=== PATIENT | female | born 1940 | race Caucasian/White ===

== ENCOUNTER 2018-06-06 15:06 | Inpatient (IN) | payer MEDICARE, MEDICAID ==
[~2018-06-06] VITALS: Ht 167.6 cm; Wt 94.4 kg
[~2018-06-06 15:06] MED LIST: ESOM40CA PO; GABA-532 PO; HYDR1TAB PO; HYDR2TAB35 PO; NAPR-1164 PO; TRAM50TA2 PO
[2018-06-06] MEDS ORDERED: IPRATROPIUM NEB FS 0.5 MG/2.5 ML AMPUL.NEB NEB ONE (15:30)
[2018-06-06] MEDS ORDERED: ALBUTEROL FS 2.5 MG/3 ML VIAL.NEB CONTNEB ONE (15:30)
[2018-06-06] MEDS ORDERED: methylPREDNISolone SOD SUCC 125 MG/2ML VIAL IV ONE (15:30)
[2018-06-06] MEDS ORDERED: methylPREDNISolone SOD SUCC 125 MG/2ML VIAL ONE (15:32)
[2018-06-06] MEDS ORDERED: ALBUTEROL FS 2.5 MG/3 ML VIAL.NEB ONE (15:47)
[2018-06-06] MEDS ORDERED: IPRATROPIUM NEB FS 0.5 MG/2.5 ML AMPUL.NEB ONE (15:47)
[2018-06-06 15:55] LABS: CALCIUM, SERUM 8.7 mg/dL (8.5-10.1); CARBON DIOXIDE 24 mmol/L (21-32); CHLORIDE 99 mmol/L (98-107); CREATININE 0.8 mg/dL (0.6-1.3); GLUCOSE 133 mg/dL (74-106); POTASSIUM 3.8 mmol/L (3.5-5.1); SODIUM SERUM 134 mmol/L (136-145); UREA NITROGEN, BLOOD 18 mg/dL (7-18)
[2018-06-06 16:00] LABS: BASOPHILS % (AUTO) 0.3 % (0.0-2.0); EOSINOPHILS % (AUTO) 0.6 % (0.0-6.0); HEMATOCRIT 38 % (33-45); HEMOGLOBIN 12.7 g/dL (11.5-14.8); LYMPHOCYTES # (AUTO) 1.1 /CMM (0.8-4.8); LYMPHOCYTES % (AUTO) 17.5 % (20.0-44.0); MEAN CORPUSCULAR HGB CONC 33 g/dl (31.0-36.0); MEAN CORPUSCULAR VOLUME 90 fL (82-100); MONOCYTES # (AUTO) 0.6 /CMM (0.1-1.30); MONOCYTES % (AUTO) 9.9 % (2.0-12.0); NEUTROPHILS # (AUTO) 4.5 /CMM (1.8-8.9); NEUTROPHILS % (AUTO) 71.7 % (43.0-81.0); PLATELET COUNT (AUTO) 173 /CMM (150-450); RED BLOOD CELL COUNT(AUTO) 4.28 MIL/uL (4.0-5.2); WHITE BLOOD COUNT (AUTO) 6.3 K/uL (4.3-11.0)
[2018-06-06 16:11] LABS: ALANINE AMINOTRANSFERASE 22 U/L (12-78); ALBUMIN 3.9 g/dL (3.4-5.0); ALKALINE PHOSPHATASE 93 U/L (46-116); ASPARTATE AMINOTRANSFERASE 21 U/L (15-37); B-TYPE NATRIURETIC PEPTIDE 534 PG/ML (0-125); BILIRUBIN,DIRECT 0.1 mg/dL (0.0-0.2); BILIRUBIN,TOTAL 0.3 mg/dL (0.2-1.0); TOTAL PROTEIN, SERUM 7.6 g/dL (6.4-8.2)
[2018-06-06] MEDS ORDERED: ACETAMINOPHEN 325 MG TABLET ONE (16:54)
[2018-06-06] MEDS ORDERED: ACETAMINOPHEN 325 MG TABLET PO ONE (17:00)
[2018-06-06] MEDS ORDERED: oxyCODONE/APAP (5/325 MG) 1 UDTAB TABLET ONE (17:22)
--- NOTE | 2018-06-06 17:29 | NUR ---
CALLED [facility]. MGMT CONSULTANT WAS PAGED
[2018-06-06] MEDS ORDERED: oxyCODONE/APAP (5/325 MG) 1 UDTAB TABLET PO ONE (17:30)
--- NOTE | 2018-06-06 17:32 | NUR ---
CALLED [facility]SE [facility] FOR TELE BED
--- NOTE | 2018-06-06 17:59 | NUR ---
TELE BED 311-1 GIVEN
[2018-06-06] MEDS ORDERED: IV NS 0.9% 1,000 ML IV PRN (18:43)
--- NOTE | 2018-06-06 18:56 | NUR ---
REPORT GIVEN TO ARUNA RAY FOR LIEN
[2018-06-06] MEDS ORDERED: GUAIFENESIN/D-METHORPHAN HB 5 ML UDC PO PRN (19:00)
[2018-06-06] MEDS ORDERED: HYDROMORPHONE HCL 2 MG TABLET PO PRN (19:00)
[2018-06-06] MEDS ORDERED: Z GUARD REMEDY 2 OZ OINT TP PRN (19:00)
[2018-06-06] MEDS ORDERED: ZOLPIDEM TARTRATE 5 MG TABLET PO PRN (19:00)
[2018-06-06] MEDS ORDERED: ONDANSETRON HCL/PF 4 MG/2 ML VIAL IVP PRN (19:00)
[2018-06-06] MEDS ORDERED: TRAMADOL HCL 50 MG TABLET PO SCH (19:00)
--- NOTE | 2018-06-06 19:55 | NUR ---
RN ADMITTING NOTES Pt WAS ALREADY ON THE FLOOR AT CHANGE OF SHIFT. FAMILY AT BEDSIDE. Pt IS A/OX4, GREENLANDIC SPEAKING, VERBAL, ABLE TO MAKE NEEDS KNOWN IN MALAYSIAN. NO S/S OF ACUTE DISTRESS. IV ACCESS ON L HAND #20G. SAFETY MEASURES IN PLACE. BED LOW, LOCKED, HOB ELEVATED, SIDE RAILS UP, CALL LIGHT AND BEDSIDE TABLE WITHIN REACH. WILL CONTINUE TO MONITOR Pt's CONDITION AND SAFETY THROUGHOUT THE NIGHT.
[2018-06-06 20:00] VITALS: BP 146/74
[2018-06-06] MEDS: MORPHINE SULFATE INJ 2 MG/ML DISP.SYRIN IV PRN (20:43)
[2018-06-06] MEDS: AZITHROMYCIN 500 MG in IV D5W 250 ML IV SCH (22:42)
[2018-06-06] MEDS: ENOXAPARIN SODIUM 40 MG/0.4 ML DISP.SYRIN SQ SCH (22:55)
[2018-06-06] MEDS: IPRATROPIUM NEB FS 0.5 MG/2.5 ML AMPUL.NEB NEB SCH ×2 (23:30→23:44)
[2018-06-06] MEDS: ALBUTEROL FS 2.5 MG/3 ML VIAL.NEB NEB SCH ×2 (23:30→23:44)
--- NOTE | 2018-06-06 23:48 | NUR ---
RT NOTE WAS NOT NOTIFIED OF PATIENT HAVING BREATHING TX. RN IS AWARE.
[2018-06-07] VITALS (7 sets, daily range): BP systolic 146–181; BP diastolic 67–88
[2018-06-07] MEDS ORDERED: VALS40TA12 PO (01:13)
[2018-06-07] MEDS: IPRATROPIUM NEB FS 0.5 MG/2.5 ML AMPUL.NEB NEB SCH ×6 (03:09→23:35)
[2018-06-07] MEDS: ALBUTEROL FS 2.5 MG/3 ML VIAL.NEB NEB SCH ×6 (03:10→23:35)
--- NOTE | 2018-06-07 06:45 | NUR ---
RN CLOSING NOTES NO SIGNIFICANT CHANGES IN Pt's CONDITION. Pt REMAINS STABLE PER BASELINE. NO S/S OF ACUTE DISTRESS OR SEVERE SOB NOTED DURING THE NIGHT. TELE READING SR 82. Pt IS RESTING IN BED. RESPIRATIONS EVEN AND UNLABORED. ALL NEEDS MET AND ATTENDED. SAFETY MEASURES IN PLACE. BED LOW, LOCKED, HOB ELEVATED, SIDE RAILS UP, CALL LIGHT AND BEDSIDE TABLE WITHIN REACH. WILL ENDORSE TO DAYSHIFT RN FOR Pt's LIEN.
[2018-06-07 07:18] LABS: BASOPHILS % (AUTO) 0.1 % (0.0-2.0); HEMATOCRIT 38 % (33-45); HEMOGLOBIN 12.8 g/dL (11.5-14.8); LYMPHOCYTES # (AUTO) 0.7 /CMM (0.8-4.8); LYMPHOCYTES % (AUTO) 8.2 % (20.0-44.0); MEAN CORPUSCULAR HGB CONC 34 g/dl (31.0-36.0); MEAN CORPUSCULAR VOLUME 88 fL (82-100); MONOCYTES # (AUTO) 0.3 /CMM (0.1-1.30); MONOCYTES % (AUTO) 4.1 % (2.0-12.0); NEUTROPHILS # (AUTO) 7.2 /CMM (1.8-8.9); NEUTROPHILS % (AUTO) 87.6 % (43.0-81.0); PLATELET COUNT (AUTO) 184 /CMM (150-450); RED BLOOD CELL COUNT(AUTO) 4.32 MIL/uL (4.0-5.2); WHITE BLOOD COUNT (AUTO) 8.2 K/uL (4.3-11.0)
[2018-06-07 07:32] LABS: CALCIUM, SERUM 9.1 mg/dL (8.5-10.1); CARBON DIOXIDE 27 mmol/L (21-32); CHLORIDE 101 mmol/L (98-107); CREATININE 0.6 mg/dL (0.6-1.3); GLUCOSE 153 mg/dL (74-106); MAGNESIUM 2.3 mg/dL (1.8-2.4); POTASSIUM 4.8 mmol/L (3.5-5.1); SODIUM SERUM 137 mmol/L (136-145); UREA NITROGEN, BLOOD 17 mg/dL (7-18)
[2018-06-07 07:52] LABS: CHOLESTEROL 189 mg/dL (<200); HDL CHOLESTEROL 97 mg/dL (40-60); LDL 84 mg/dL (0-99); TRIGLYCERIDES 32 mg/dL (30-150)
--- NOTE | 2018-06-07 08:00 | NUR ---
VIDEO TAPE EDITOR OPENING NOTES PATIENT A/O X4 AND ABLE TO MAKE NEEDS KNOWN. RESPIRATION EVEN AND NON LABORED WITH NO ACUTE RESPIRATORY DISTRESS, ON O2 AT 2LPM VIA N/C AND TOLERATED WELL. ABDOMEN SOFT AND NON DISTENDED WITH ACTIVE BOWEL SOUNDS TO ALL QUADRANTS. SKIN WARM TO TOUCH, INTACT AND DRY. DENIES PAIN AND DISCOMFORT AT THIS TIME. IV INFUSING WITH NS AT 75 ML/HR AT LEFT HAND, PATENT IN FLUSHING, NO S/SX OF INFILTRATION. PER TELE MONITOR WITH SINUS RHYTHM AT 69. ALL CONCERNS ATTENDED. PLACED CALL LIGHT WITHIN REACH TO ENSURE SAFETY. WILL CONTINUE TO EVALUATE CARE.
[2018-06-07] MEDS: PANTOPRAZOLE 40 MG TABLET.DR PO SCH (09:00)
[2018-06-07] MEDS: GABAPENTIN 100 MG CAPSULE PO SCH ×3 (09:00→16:30)
[2018-06-07] MEDS: NAPROXEN 500 MG TABLET PO SCH ×2 (09:00→09:01)
[2018-06-07] MEDS: methylPREDNISolone SOD SUCC 40 MG/ML VIAL IV SCH ×3 (09:00→16:30)
[2018-06-07] MEDS: MORPHINE SULFATE INJ 2 MG/ML DISP.SYRIN IV PRN (10:02)
[2018-06-07] MEDS: VALSARTAN 80 MG TABLET PO SCH (12:27)
[2018-06-07] MEDS ORDERED: TRAMADOL HCL 50 MG TABLET PO PRN (15:00)
--- NOTE | 2018-06-07 16:28 | NUR ---
MARKETING TRAFFIC MANAGER NOTES NAPROXEN DC PER MD ORDER DUE TO PATIENT COMPLAIN OF STOMACH PAIN. ORDER VERIFIED, NOTED AND CARRIED OUT. WILL CONTINUE TO EVALUATE CARE.
--- NOTE | 2018-06-07 19:00 | NUR ---
SERVER SUPPORT TECHNICIAN CLOSING NOTES PATIENT A/O X4 AND ABLE TO MAKE NEEDS KNOWN. RESPIRATION EVEN AND NON LABORED WITH NO ACUTE RESPIRATORY DISTRESS, ON O2 AT 2LPM VIA N/C AND TOLERATED WELL. ABDOMEN SOFT AND NON DISTENDED WITH ACTIVE BOWEL SOUNDS TO ALL QUADRANTS. SKIN WARM TO TOUCH, INTACT AND DRY. DENIES PAIN AND DISCOMFORT AT THIS TIME. IV INFUSING WITH NS AT 75 ML/HR AT LEFT HAND, PATENT IN FLUSHING, NO S/SX OF INFILTRATION. PER TELE MONITOR WITH SINUS RHYTHM WITH 1 DEGREE BLOCK AND BBB AT 77. ALL CONCERNS ATTENDED. PLACED CALL LIGHT WITHIN REACH TO ENSURE SAFETY. ENDORSED PATIENT TO NEXT SHIFT.
[2018-06-07] MEDS: AZITHROMYCIN 500 MG in IV D5W 250 ML IV SCH (19:06)
[2018-06-07] MEDS: ENOXAPARIN SODIUM 40 MG/0.4 ML DISP.SYRIN SQ SCH (19:06)
--- NOTE | 2018-06-07 20:15 | NUR ---
RN OPEN NOTES RECEIVED PATIENT AWAKE IN BED. A/O X4. URDU SPEAKING. ON 2LPM O2 VIA NC. NO SIGNS OF DISTRESS OR DISCOMFORT. BREATHING EVEN AND UNLABORED. ON TELE WITH SR 89 NOTED. IV ACCES IN L HAD WITH NS INFUSING, NO SIGNS OF REDNESS OR INFILTRATION. BED IN LOW LOCKED POSITION WITH SIDE RAILS X2. CALL LIGHT WITHIN REACH. WILL CONTINUE TO MONITOR.
[2018-06-08] VITALS: BP 154/80
--- NOTE | 2018-06-08 02:54 | NUR ---
PATIENT ENDORSED TO MARGO RAY FOR LIEN.
--- NOTE | 2018-06-08 03:15 | NUR ---
RN NOTES RECEIVED ENDORSEMENT FROM FLOR PIERRE FOR Pt's LIEN. NO S/S OF ACUTE DISTRESS OR SOB NOTED. WILL CONTINUE TO MONITOR Pt's CONDITION AND SAFETY THROUGHOUT THE REMAINDER OF THE SHIFT.
[2018-06-08] MEDS: ACETAMINOPHEN 325 MG TABLET PO PRN (03:25)
[2018-06-08] MEDS: HYDROCODONE/APAP 5/325MG 1 EACH TABLET PO PRN ×2 (03:37→12:42)
[2018-06-08] MEDS: IPRATROPIUM NEB FS 0.5 MG/2.5 ML AMPUL.NEB NEB SCH ×6 (03:38→23:02)
[2018-06-08] MEDS: ALBUTEROL FS 2.5 MG/3 ML VIAL.NEB NEB SCH ×6 (03:38→23:02)
[2018-06-08 04:00] VITALS: BP 119/79
[2018-06-08] MEDS: PANTOPRAZOLE 40 MG TABLET.DR PO SCH (06:35)
--- NOTE | 2018-06-08 06:48 | NUR ---
RN CLOSING NOTES NO SIGNIFICANT CHANGES IN Pt's CONDITION. Pt REMAINS STABLE AT THIS TIME. NO S/S OF ACUTE DISTRESS OR SOB NOTED DURING THE NIGHT. ALL NEEDS MET AND ATTENDED TO. Pt IS CURRENTLY RESTING IN BED COMFORTABLY. RESPIRATIONS EVEN AND UNLABORED. SAFETY MEASURES IN PLACE. BED LOW, LOCKED, HOB ELEVATED, SIDE RAILS UP, CALL LIGHT AND BEDSIDE TABLE WITHIN REACH. BED ALARM ON. WILL ENDORSE TO DAYSHIFT RN FOR Pt's LIEN.
[2018-06-08 07:27] LABS: BASOPHILS % (AUTO) 0.1 % (0.0-2.0); HEMATOCRIT 36 % (33-45); LYMPHOCYTES # (AUTO) 0.9 /CMM (0.8-4.8); LYMPHOCYTES % (AUTO) 7.5 % (20.0-44.0); MEAN CORPUSCULAR HGB CONC 33 g/dl (31.0-36.0); MEAN CORPUSCULAR VOLUME 88 fL (82-100); MONOCYTES # (AUTO) 0.8 /CMM (0.1-1.30); MONOCYTES % (AUTO) 6.4 % (2.0-12.0); NEUTROPHILS # (AUTO) 10.2 /CMM (1.8-8.9); PLATELET COUNT (AUTO) 192 /CMM (150-450); WHITE BLOOD COUNT (AUTO) 11.8 K/uL (4.3-11.0)
[2018-06-08 07:45] LABS: ALANINE AMINOTRANSFERASE 25 U/L (12-78); ALBUMIN 3.4 g/dL (3.4-5.0); ALKALINE PHOSPHATASE 66 U/L (46-116); ASPARTATE AMINOTRANSFERASE 25 U/L (15-37); BILIRUBIN,TOTAL 0.2 mg/dL (0.2-1.0); CALCIUM, SERUM 8.8 mg/dL (8.5-10.1); CARBON DIOXIDE 25 mmol/L (21-32); CHLORIDE 106 mmol/L (98-107); CREATININE 0.7 mg/dL (0.6-1.3); GLUCOSE 155 mg/dL (74-106); MAGNESIUM 2.4 mg/dL (1.8-2.4); PHOSPHORUS 2.9 mg/dL (2.5-4.9); POTASSIUM 4.4 mmol/L (3.5-5.1); SODIUM SERUM 141 mmol/L (136-145); TOTAL PROTEIN, SERUM 7.1 g/dL (6.4-8.2); UREA NITROGEN, BLOOD 21 mg/dL (7-18)
[2018-06-08 08:00] VITALS: BP 165/83
--- NOTE | 2018-06-08 08:00 | NUR ---
rn notes Received patient in the bed a/o x3/4, Uzbek speaker. Patient on O2 -2L NC, was complaining of pain when cough, and wheezing during auscultation., but has no acute respiratory distress. Patient sitting using pillows , keep HOB elevated all the time. Scheduled medication administered, v/s stable. patient using walker, continent using bathroom. Needs attended and anticipated. Call light within to reach. Safety precaution maintained all the time.
[2018-06-08] MEDS: GABAPENTIN 100 MG CAPSULE PO SCH ×3 (09:35→17:00)
[2018-06-08] MEDS: VALSARTAN 80 MG TABLET PO SCH (09:36)
[2018-06-08] MEDS: methylPREDNISolone SOD SUCC 40 MG/ML VIAL IV SCH ×3 (09:36→17:01)
[2018-06-08] MEDS: ASPIRIN 81 MG TAB.CHEW PO SCH (09:44)
--- NOTE | 2018-06-08 12:42 | NUR ---
RN NOTES ADMINISTERED NARCO 5/325 MG PO PRN FOR LEFT LEG PAIN 5/10 PER PATIENT REQUEST, V/S TAKEN STABLE, ENCOURAGED TO INCREASE FLUID INTAKE TOLERATED, CALL LIGHT WITHIN TO REACH. ALSO ADMINISTERED SCHEDULED MEDICATION. PATIENT ON O2-2L NS, NO ACUTE RESPIRATORY DISTRESS. PATIENT USING WALKER TO AMBULATE. SAFETY PRECAUTION MAINTAINED ALL THE TIME.
[2018-06-08 16:00] VITALS: BP 167/73
[2018-06-08] MEDS: CLONIDINE HCL 0.1 MG TABLET PO PRN (17:08)
--- NOTE | 2018-06-08 17:08 | NUR ---
RN NOTES BP -183/73, P-78 ADMINISTERED CATAPRES 0.1 MG PO PRN PRESCRIBED, CONTINUED MONITORING.
[2018-06-08 18:00] VITALS: BP 149/72
--- NOTE | 2018-06-08 18:30 | NUR ---
RN NOTES PATIENT STABLE MEDICATION WERE ADMINISTERED FOR BP EFFECTIVE, PATIENT STABLE REFUSED PAIN MEDICATION AT THIS TIME. INFUSING ANTIBIOTIC AT THIS TIME, INTACT. PATIENT STABLE. CALL LIGHT WITHIN TO REACH. ENDORSED ONCOMING NURSE FOR PLAN OF CARE.
[2018-06-08] MEDS: AZITHROMYCIN 500 MG in IV D5W 250 ML IV SCH (18:31)
[2018-06-08] MEDS: ENOXAPARIN SODIUM 40 MG/0.4 ML DISP.SYRIN SQ SCH (18:45)
--- NOTE | 2018-06-08 19:10 | NUR ---
MS RN OPENING NOTES Received patient sitting up in bed, alert, oriented 4. Breathing even and unlabored. Not in any distress. On supplemental O2 at 2LPM via NC, tolerating well. IV access on R) wrist g#22, currently infusing IV antibiotic. No complaints as of this time. Call light within easy reach. Bed in low, locked position.Patient stable as endorsed by the AM RN. Will continue to monitor accordingly
[2018-06-08 20:00] VITALS: BP 146/79
[2018-06-09] MEDS: HYDROCODONE/APAP 5/325MG 1 EACH TABLET PO PRN ×2 (02:59→13:33)
--- NOTE | 2018-06-09 03:00 | NUR ---
RN NOTES Patient c/o pain on leg, 09/08. norco 5-325 given as ordered. will continue to monitor
[2018-06-09] MEDS: ALBUTEROL FS 2.5 MG/3 ML VIAL.NEB NEB SCH ×6 (03:25→22:52)
[2018-06-09] MEDS: IPRATROPIUM NEB FS 0.5 MG/2.5 ML AMPUL.NEB NEB SCH ×6 (03:25→22:52)
[2018-06-09 07:02] LABS: HEMATOCRIT 37 % (33-45); HEMOGLOBIN 12.4 g/dL (11.5-14.8); LYMPHOCYTES # (AUTO) 0.8 /CMM (0.8-4.8); LYMPHOCYTES % (AUTO) 9.1 % (20.0-44.0); MEAN CORPUSCULAR HGB CONC 33 g/dl (31.0-36.0); MEAN CORPUSCULAR VOLUME 89 fL (82-100); MONOCYTES # (AUTO) 0.5 /CMM (0.1-1.30); MONOCYTES % (AUTO) 5.7 % (2.0-12.0); NEUTROPHILS # (AUTO) 7.6 /CMM (1.8-8.9); NEUTROPHILS % (AUTO) 85.2 % (43.0-81.0); PLATELET COUNT (AUTO) 222 /CMM (150-450); RED BLOOD CELL COUNT(AUTO) 4.21 MIL/uL (4.0-5.2); WHITE BLOOD COUNT (AUTO) 8.9 K/uL (4.3-11.0)
--- NOTE | 2018-06-09 07:02 | NUR ---
MS RN NOTES PATIENT IN BED EYES CLOSED, EASY TO AROUSE. RESPOND TO VERBAL AND TACTILE STIMULI. NO ACUTE DISTRESS NOTED. BREATHING UNLABORED. NO SOB NOTED. SAFETY MEASURES IN PLACE. CALL LIGHT WITHIN REACH. WILL CONTINUE TO MONITOR ACCORDINGLY.
--- NOTE | 2018-06-09 07:06 | NUR ---
MS RN CLOSING NOTES Patient resting in bed, alert, oriented 4. Breathing even and unlabored. Not in any distress. On supplemental O2 at 2LPM via NC, tolerating well. IV access on R) wrist g#22 intact and patent. No complaints as of this time. Call light within easy reach. Bed in low, locked position. Will endorse LIEN to oncoming RN
[2018-06-09 07:26] LABS: CARBON DIOXIDE 25 mmol/L (21-32); CHLORIDE 103 mmol/L (98-107); CREATININE 0.7 mg/dL (0.6-1.3); GLUCOSE 150 mg/dL (74-106); MAGNESIUM 2.3 mg/dL (1.8-2.4); PHOSPHORUS 2.7 mg/dL (2.5-4.9); POTASSIUM 4.6 mmol/L (3.5-5.1); SODIUM SERUM 138 mmol/L (136-145); UREA NITROGEN, BLOOD 25 mg/dL (7-18)
[2018-06-09 07:57] VITALS: BP 174/71
--- NOTE | 2018-06-09 08:15 | NUR ---
MS RN NOTES SEEN AND EVALUTED BY DAVID STEPHENS WITH NEW ORDERS MADE, NOTED AND CARRIED OUT.
[2018-06-09] MEDS: PANTOPRAZOLE 40 MG TABLET.DR PO SCH (08:18)
[2018-06-09] MEDS: GABAPENTIN 100 MG CAPSULE PO SCH ×4 (08:21→16:50)
[2018-06-09] MEDS: ACETAMINOPHEN 325 MG TABLET PO PRN (08:21)
[2018-06-09] MEDS: ASPIRIN 81 MG TAB.CHEW PO SCH ×2 (08:21→08:28)
[2018-06-09] MEDS: methylPREDNISolone SOD SUCC 40 MG/ML VIAL IV SCH ×3 (08:21→16:49)
[2018-06-09] MEDS: VALSARTAN 80 MG TABLET PO SCH (08:22)
--- NOTE | 2018-06-09 11:41 | NUR ---
MS RN NOTES PATIENT REFUSED RAPID INFLUENZA DESPITE OF EXPLANATION OF RISK AND BENEFITS. ANNE STEPHENS MADE AWARE.
[2018-06-09 16:00] VITALS: BP 176/91
[2018-06-09] MEDS: CLONIDINE HCL 0.1 MG TABLET PO PRN (16:49)
--- NOTE | 2018-06-09 19:00 | NUR ---
MS RN NOTES PATIENT IN BED ALERT ORIENTED X3, NO ACUTE DISTRESS NOTED. BREATHING UNLABORED. NO SOB NOTED. DUE MEDICATIONS GIVEN, NO ASE NOTED. NEEDS ATTENDED AND ANTICIPATED. KEPT CLEAN DRY AND COMFORTABLE.SAFETY MEASURES IN PLACE. CALL LIGHT WITHIN REACH. ENDORSED TO NIGHT NURSE FOR CONITUITY OF CARE.
[2018-06-09] MEDS: ENOXAPARIN SODIUM 40 MG/0.4 ML DISP.SYRIN SQ SCH (19:04)
--- NOTE | 2018-06-09 19:05 | NUR ---
RN MS OPENING NOTES RECEIVED PATIENT IN BED AWAKE, ALERT AND ORIENTED X 4, RESPIRATIONS EVEN AND UNLABORED WITH EQUAL RISE AND FALL OF CHEST, DENIES ANY PAIN OR DISCOMFORT, IV SITE RIGHT WRIST #22G INTACT AND PATENT, NO REDNESS,NO INFILTRATION PRESENT SL, ORIENTED TO STAFF AND CALL LIGHT AND KEPT WITHIN REACH ,SAFETY PRECAUTIONS IN PLACE, LOW BED AND LOCKED, PER REPORT NEW ORDER FOR DISCHARGE. WILL CONTINUE TO MONITOR. ALL NEEDS ATTENDED AT THIS TIME, WILL CONTINUE TO MONITOR.
[2018-06-09] MEDS ORDERED: AZIT250T PO (19:09)
[2018-06-09 20:00] VITALS: BP 188/82
[2018-06-09] MEDS ORDERED: AZITHROMYCIN 250 MG TABLET PO SCH (20:00)
--- NOTE | 2018-06-09 20:00 | NUR ---
RN MS NOTES PATIENT BLOOD PRESSURE NOTED TO BE ELEVATED AT 188/82 NORA STEPHENS MADE AWARE OF B/P PRIOR TO DISCHARGE AND IF OKAY TO STILL DISCHARGE PATIENT IS ASYMPTOMATIC NEW ORDER FOR CLONIDINE 0.1MG X1 DOSE NOW AND OKAY TO DC WILL CONTINUE TO MONITOR BLOOD PRESSURE SPOKE TO DAUGHTER MIGNON MADE AWARE OF B/P AND NEW MD ORDER . PER DAUGHTER DOES NOT WANT TO TAKE PATIENT HOME IF B/P REMAINS HIGH.
[2018-06-09] MEDS: MAG HYDROX/AL HYDROX/SIMETH 30 ML UDC PO PRN (20:24)
--- NOTE | 2018-06-09 20:24 | NUR ---
RN MS NOTES CLONIDINE 0.1MG X 1 DOSE GIVEN ORDERED FOR ELEVATED B/P. PATIENT COMPLAINT OF FEELING SOME INDIGESTION OFFERED MAALOX, PATIENT AGREED. WILL CONTINUE TO MONITOR FOR EFFECTIVENESS.
[2018-06-09] MEDS ORDERED: CLONIDINE HCL 0.1 MG TABLET PO ONE (20:30)
--- NOTE | 2018-06-09 22:00 | NUR ---
RN MS NOTES BLOOD PRESSURE REASSESED REMAINS ELEVATED AT 196/88 HEART RATE 67, PATIENT ASYMPTOMATIC. MADE LUCERO AWARE OF PRN CLONIDINE DOSE GIVEN NOT EFFECTIVE, AND PATIENT B/P TRENDS BETWEEN SBP 140-170'S NEW ORDER FOR NORVASC 2.5MG X 1NOW AND NORVASC 2.5MG DAILY. MADE LUCERO AWARE PATIENT DAUGHTER NOT COMFORTABLE FOR DISCHARGE PER MD PATIENT IS OKAY TO STAY TONIGHT. WILL CONTINUE TO MONITOR AND ASSESS B/P
[2018-06-09] MEDS ORDERED: AMLODIPINE BESYLATE 2.5 MG TABLET PO ONE (22:30)
[2018-06-09] MEDS: MAGNESIUM HYDROXIDE 30 ML UDC PO PRN (23:01)
--- NOTE | 2018-06-09 23:01 | NUR ---
RN MS NOTES PATIENT STATES " HAS NOT HAD SRIDHAR X 3DAYS" MILK OF MAGNESIUM OFFERED, PATIENT AGREED, WILL CONTINUE TO MONITOR FOR EFFECTIVENESS. FLUIDS OFFERED, TOILETING OFFERED.
--- NOTE | 2018-06-09 23:06 | NUR ---
RN MS NOTES NORVASC X 1 DOSE GIVEN, WILL CONTINUE TO MONITOR FOR EFFECTIVENESS SBP 190/81 HEART RATE 85
[2018-06-10] MEDS: MORPHINE SULFATE INJ 2 MG/ML DISP.SYRIN IV PRN ×2 (01:43→13:36)
--- NOTE | 2018-06-10 01:43 | NUR ---
RN MS NOTES PATIENT COMPLAINT OF PAIN TO LEFT BACK, BUTTOCKS AREA PAIN REQUESTING FOR MORPHINE C/O PAIN 10/09 VS ASSESSED 170/88,71,18.94%. MORPHINE PRN ORDERED GIVEN. NORVASC EFFECTIVE B/P IS DECREASING PATIENT ASYMPTOMATIC. RIGHT WRIST IV SITE REMOVED, NOT WORKING NEW IV SITE TO LEFT WRIST #24
[2018-06-10 02:00] VITALS: BP 170/82
[2018-06-10] MEDS: IPRATROPIUM NEB FS 0.5 MG/2.5 ML AMPUL.NEB NEB SCH ×3 (03:09→11:50)
[2018-06-10] MEDS: ALBUTEROL FS 2.5 MG/3 ML VIAL.NEB NEB SCH ×3 (03:09→11:50)
[2018-06-10 06:15] VITALS: BP 192/81
--- NOTE | 2018-06-10 06:15 | NUR ---
RN MS TRANSFER NOTES PATIENT SAFELY TRANSFERRED TO MS 2 ENDORSEMENT WITH BELONGINGS GIVEN TO FLOR DARLING FOR CONTINUITY OF CARE. PRIOR TO TRANSFER PATIENT B/P 170/88,71, ASYMPTOMATIC. UPON TRANSFER IN MS 2, NOTED B/P 192/81/69, ASYMPTOMATIC. LUCERO MADE AWARE PER LUCERO GIVE DIOVAN AT THIS TIME. ENDORSED TO COVERING RN AT THIS TIME TO GIVE. PATIENT ALSO HAS PRN CLONIDINE.
[2018-06-10] MEDS: CLONIDINE HCL 0.1 MG TABLET PO PRN ×2 (06:18→13:22)
[2018-06-10] MEDS: VALSARTAN 80 MG TABLET PO SCH (06:21)
--- NOTE | 2018-06-10 06:30 | NUR ---
TRANSFER OF CARE RECEIVE REPORT FROM SPLITTER HEAD RN AT 0615 PT IN BED TRANSFER TO 200. PT A/O X 3, ALL BELONGINGS WITH PATIENT. NEEDS ATTENDED AND ANTICIPATED. KEPT CLEAN AND DRY, PT STABLE CONDITION NO S/S OF DISTRESS. VS CHECKED BP OF 192/81 PER ENDORSED BY SPLITTER HEAD RN GIVE AM 0900 DOSE OF DIOVAN NOW WITH PRN CLONIDINE. WILL ENDORSE NEXT SHIFT POC.
[2018-06-10 07:00] VITALS: BP 159/98
[2018-06-10 08:00] VITALS: BP 185/91
[2018-06-10] MEDS ORDERED: methylPREDNISolone SOD SUCC 40 MG/ML VIAL IV SCH (09:00)
[2018-06-10] MEDS ORDERED: AMLODIPINE BESYLATE 2.5 MG TABLET PO SCH (09:00)
[2018-06-10] MEDS: GABAPENTIN 100 MG CAPSULE PO SCH ×3 (09:44→16:07)
[2018-06-10] MEDS: ASPIRIN 81 MG TAB.CHEW PO SCH (09:44)
[2018-06-10] MEDS: PANTOPRAZOLE 40 MG TABLET.DR PO SCH (09:44)
[2018-06-10 10:00] VITALS: BP 175/80
--- NOTE | 2018-06-10 13:23 | NUR ---
RN NOTES ADMINISTERED CATAPRES 0.1 MG PO PRN FOR BP-189/79, P-68, CONTINUED MONITORING.
[2018-06-10] MEDS: MAG HYDROX/AL HYDROX/SIMETH 30 ML UDC PO PRN (14:34)
--- NOTE | 2018-06-10 14:34 | NUR ---
RN NOTES ADMINISTERED MAALOX 30 MG /ML PO PRN FOR STOMACHACHE PER PATIENT REQUEST. PATIENT GOING TO D/C HOME PER GABBY STEPHENS'S ORDER.
[2018-06-10] MEDS: MAGNESIUM HYDROXIDE 30 ML UDC PO PRN (14:52)
--- NOTE | 2018-06-10 14:53 | NUR ---
RN NOTES ADMINISTERED MILK OF MAGNESIA FOR CONSTIPATION.
[2018-06-10 16:18] VITALS: BP 143/83
--- NOTE | 2018-06-10 16:30 | NUR ---
FEATURE WRITER NOTES PATIENT DISCHARGE AT THIS TIME GOING HOME. PATIENT A/O X4, MED COMPLIANT, V/S TAKEN BP-143/83, P-69 STABLE. PATIENT REFUSED PAIN AT THIS TIME. MED RECONCILIATION AND DISCHARGE ORDER REVIEWED AND EXPLAINED TO PATIENT, AND DAUGHTER NAME MARLY. PATIENT VERBALIZED UNDERSTANDING. BELONGING WITH THE PATIENT. PRESCRIPTION FAXED TO THE [facility] [phone]. PATIENT WILL FOLLOW PRIMARY MD. PATIENT SIGN PAPERWORK. ESCORTED PATIENT TO THE LOBBY FOR SAFETY. PATIENT WILL PRINCIPAL LIBRARIAN BY DAUGHTER NAME MIGNON PHONE # [phone].
== END 2018-06-10 16:42 | disposition home or self-care (01) | DRG 865 ==
LOC: ER 15:10 → TELE 18:44 → MED 06-07 12:05 → TELE 06-07 12:07 → MED 06-08 10:51 → MEDSG2 06-10 05:55
PROVIDERS: ADMIT Internal Medicine; ATTEND Hospitalist
DX: B34.9 Viral infection, unspecified (principal); I21.A1 Myocardial infarction type 2; J45.901 Unspecified asthma with (acute) exacerbation; E78.5 Hyperlipidemia, unspecified; M06.9 Rheumatoid arthritis, unspecified; Z68.33 Body mass index [BMI] 33.0-33.9, adult; E66.9 Obesity, unspecified; I27.20 Pulmonary hypertension, unspecified; D72.829 Elevated white blood cell count, unspecified; G89.29 Other chronic pain; Z91.19 Patient's noncompliance with other medical treatment and regimen; T38.0X5A Adverse effect of glucocorticoids and synthetic analogues, initial encounter; Z96.653 Presence of artificial knee joint, bilateral; Z90.49 Acquired absence of other specified parts of digestive tract; I10 Essential (primary) hypertension
CPT/HCPCS: 36415; 70220-TC; 71045-TC; 80048-TC; 80053-TC; 80061-TC; 80076-TC; 83735-TC; 83880; 84100-TC; 84484-TC; 85025-TC; 87081-TC; 93307-TC; 93970-TC; 94799-TC; G0378; J0456; J1650; J2270; J2405; J2920; J2930; J7030; J7050; J7060

== ENCOUNTER 2020-07-28 16:54 | Inpatient (IN) | payer MEDICARE, OTHER ==
[~2020-07-28] VITALS: Ht 157.5 cm; Wt 92.2 kg
[~2020-07-28 16:54] MED LIST changes: +AZIT250T PO; -HYDR1TAB PO; +VALS40TA12 PO
--- NOTE | 2020-07-28 16:54 | NUR ---
PT [id number] HOME, PER REPORT WEAK X TODAY W/ NOTED HIGH BLOOD PRESSURE. PT IS AAOX4, NOT IN RESPIRATORY DISTRESS, HOOKED TO NEW ACCOUNT INTERVIEWER, KEPT RESTED AND COMFORTABLE. WILL CONTINUE TO MONITOR.
--- NOTE | 2020-07-28 17:26 | NUR ---
AT BEDSIDE FOR EVAL.
[2020-07-28] MEDS ORDERED: ATOR40TA PO (17:41)
[2020-07-28] MEDS ORDERED: SITA1TAB6 PO (17:41)
[2020-07-28] MEDS ORDERED: VALS1TAB6 PO (17:41)
[2020-07-28] MEDS ORDERED: ICOS1CAP PO (17:41)
[2020-07-28] MEDS ORDERED: NEBI5TAB8 PO (17:41)
--- NOTE | 2020-07-28 17:50 | NUR ---
IV LINE ESTABLISHED BLOOD DRAWN AND SENT TO LAB.
[2020-07-28 18:24] LABS: BASOPHILS % (AUTO) 0.4 % (0.0-2.0); CALCIUM, SERUM 9.2 mg/dL (8.5-10.1); CARBON DIOXIDE 28 mmol/L (21-32); CHLORIDE 103 mmol/L (98-107); GLUCOSE 117 mg/dL (74-106); HEMATOCRIT 32 % (33-45); HEMOGLOBIN 10.7 g/dL (11.5-14.8); LYMPHOCYTES # (AUTO) 1.4 /CMM (0.8-4.8); LYMPHOCYTES % (AUTO) 25.6 % (20.0-44.0); MEAN CORPUSCULAR HGB CONC 33 g/dl (31.0-36.0); MEAN CORPUSCULAR VOLUME 90 fL (82-100); MONOCYTES # (AUTO) 0.7 /CMM (0.1-1.30); MONOCYTES % (AUTO) 13.1 % (2.0-12.0); NEUTROPHILS # (AUTO) 3.1 /CMM (1.8-8.9); NEUTROPHILS % (AUTO) 58.9 % (43.0-81.0); PLATELET COUNT (AUTO) 220 /CMM (150-450); POTASSIUM 5.2 mmol/L (3.5-5.1); RED BLOOD CELL COUNT(AUTO) 3.59 MIL/uL (4.0-5.2); SODIUM SERUM 138 mmol/L (136-145); UREA NITROGEN, BLOOD 21 mg/dL (7-18); WHITE BLOOD COUNT (AUTO) 5.3 K/uL (4.3-11.0)
[2020-07-28 18:37] LABS: NT-PRO BNP 1351 pg/mL (0-125)
--- NOTE | 2020-07-28 19:21 | NUR ---
DR. MARROQUIN NOTIFIED OF PRESSURE.
--- NOTE | 2020-07-28 19:43 | NUR ---
COVID 19 RAPID SWAB SAMPLE COLLECTED AND SENT TO THE LAB.
--- NOTE | 2020-07-28 19:46 | NUR ---
PATIENT TO CT VIA [facility]
[2020-07-28] MEDS ORDERED: IOHEXOL-350 100 ML VIAL IV ONE (19:51)
[2020-07-28] MEDS ORDERED: IV NS 0.9% 250 ML IV ONE (19:52)
[2020-07-28] MEDS ORDERED: CT SWABBABLE VALVE TRANS SET 1 EA INFUS.SET MC ONE (19:52)
--- NOTE | 2020-07-28 20:06 | NUR ---
PATIENT RETURNED FROM CT
[2020-07-28] MEDS ORDERED: hydrALAZINE HCL IV 20 MG VIAL ONE (20:28)
--- NOTE | 2020-07-28 20:34 | NUR ---
DR. SMITH AT BEDSIDE FOR RE-EVALUATION
--- NOTE | 2020-07-28 20:51 | NUR ---
TRENT NELSON DNP AT BEDSIDE
[2020-07-28] MEDS ORDERED: hydrALAZINE HCL IV 20 MG VIAL IV ONE (21:00)
[2020-07-28] MEDS ORDERED: LABETALOL HCL IV 100MG VIAL ONE (21:46)
--- NOTE | 2020-07-28 21:47 | NUR ---
notified of blodo pressure at 204/79, HR at 70. dr. gtz verbal order to give Labetalol 10mg IV. Will medicate as ordered.
--- NOTE | 2020-07-28 21:49 | NUR ---
Patient states that she feels anxious.
--- NOTE | 2020-07-28 21:52 | NUR ---
Patient medicated as ordered
--- NOTE | 2020-07-28 21:54 | NUR ---
Attempted to give report to the nurse. Staff states that nurse is currently busy, will receive a callback.
[2020-07-28] MEDS ORDERED: LABETALOL HCL IV 100MG VIAL IV PRN (22:00)
--- NOTE | 2020-07-28 22:07 | NUR ---
report given to jacquelin guerin for ishaan.
[2020-07-28 22:20] VITALS: BP 180/75
[2020-07-28] MEDS ORDERED: VALSARTAN 80 MG TABLET PO SCH (22:30)
--- NOTE | 2020-07-28 22:30 | NUR ---
MOLD INSPECTORSOFTWARE ENGINEERING ANALYST NOTES PATIENT ALERT AND ORIENTED X 4, PATIENT SPEAKS GREEK, SISTER CAPRI ([phone]) AT BEDSIDE. NO COMPLAINTS OF PAIN AT THIS TIME. PATIENT STABLE ON ROOM AIR, NO S/S OF DISTRESS OR SHORTNESS OF BREATH NOTED. IV ACCESS RIGHT AC PATENT AND INTACT, SALINE LOCKED. PATIENT ON TELE MONITORING, CURRENTLY NSR, HR: 65. PATIENT ORIENTED TO ROOM AND HOW TO USE CALL LIGHT. SAFETY MEASURES IN PLACE, BED LOCKED IN LOWEST POSITION, CALL LIGHT WITHIN REACH, BED ALARM ON, SIDE RAILS UP X 3. WILL CONTINUE TO MONITOR. WILL CONTINUE PLAN OF CARE
[2020-07-28] MEDS ORDERED: HOME MED MISCELLANEOUS XX SCH (23:00)
[2020-07-28] MEDS ORDERED: hydrALAZINE HCL IV 20 MG VIAL IV PRN (23:00)
[2020-07-28] MEDS ORDERED: INSULIN REGULAR, HUMAN 100 UNIT/ML 3 ML VIAL SQ PRN (23:00)
[2020-07-28] MEDS ORDERED: DEXTROSE 50%-WATER 50 ML DISP.SYRIN IV PRN (23:00)
[2020-07-28] MEDS ORDERED: MAG HYDROX/AL HYDROX/SIMETH 30 ML UDC PO PRN (23:00)
[2020-07-28] MEDS ORDERED: ENOXAPARIN SODIUM 40 MG/0.4 ML DISP.SYRIN SQ SCH (23:00)
[2020-07-29] VITALS: BP 174/69
[2020-07-29 00:26] LABS: MAGNESIUM 1.8 mg/dL (1.8-2.4)
[2020-07-29 00:27] LABS: IRON, SERUM 44 ug/dl (50-175); TOTAL IRON BINDING CAPACITY 300 ug/dl (250-450)
[2020-07-29] MEDS ORDERED: IBUPROFEN 400 MG TABLET PO PRN (00:30)
[2020-07-29 00:33] LABS: CHOLESTEROL 191 mg/dL (<200); FERRITIN 78 ng/mL (8-388); HDL CHOLESTEROL 83 mg/dL (40-60); LDL 87 mg/dL (0-99); THYROID STIMULATING HORMONE 3.103 uIU/mL (0.358-3.74); TRIGLYCERIDES 56 mg/dL (30-150)
[2020-07-29] MEDS: HYDROCODONE/APAP 5/325MG TABLET PO PRN ×2 (02:30→08:01)
[2020-07-29 04:00] VITALS: BP 164/99
[2020-07-29] MEDS ORDERED: LORAZEPAM INJ 2 MG/ML VIAL IV PRN (05:30)
[2020-07-29 06:36] LABS: BASOPHILS % (AUTO) 0.5 % (0.0-2.0); EOSINOPHILS % (AUTO) 1.7 % (0.0-6.0); HEMATOCRIT 33 % (33-45); HEMOGLOBIN 10.9 g/dL (11.5-14.8); LYMPHOCYTES # (AUTO) 1.8 /CMM (0.8-4.8); MEAN CORPUSCULAR HGB CONC 34 g/dl (31.0-36.0); MEAN CORPUSCULAR VOLUME 90 fL (82-100); MONOCYTES # (AUTO) 0.5 /CMM (0.1-1.30); MONOCYTES % (AUTO) 9.5 % (2.0-12.0); NEUTROPHILS % (AUTO) 55.3 % (43.0-81.0); PLATELET COUNT (AUTO) 235 /CMM (150-450); WHITE BLOOD COUNT (AUTO) 5.5 K/uL (4.3-11.0)
[2020-07-29 06:57] LABS: ALANINE AMINOTRANSFERASE 21 U/L (12-78); ALBUMIN 3.7 g/dL (3.4-5.0); ALKALINE PHOSPHATASE 65 U/L (46-116); ASPARTATE AMINOTRANSFERASE 14 U/L (15-37); BILIRUBIN,TOTAL 0.4 mg/dL (0.2-1.0); CALCIUM, SERUM 9.4 mg/dL (8.5-10.1); CARBON DIOXIDE 25 mmol/L (21-32); CHLORIDE 102 mmol/L (98-107); GLUCOSE 109 mg/dL (74-106); MAGNESIUM 1.8 mg/dL (1.8-2.4); PHOSPHORUS 4.4 mg/dL (2.5-4.9); POTASSIUM 4.7 mmol/L (3.5-5.1); SODIUM SERUM 137 mmol/L (136-145); TOTAL PROTEIN, SERUM 7.1 g/dL (6.4-8.2); UREA NITROGEN, BLOOD 20 mg/dL (7-18)
[2020-07-29] MEDS: BLOOD SUGAR DIAGNOSTIC 1 EACH STRIP IN SCH ×2 (07:00→12:00)
--- NOTE | 2020-07-29 07:25 | NUR ---
FLEET MAINTENANCE FOREMAN CLOSING NOTES PATIENT RESTING IN BED. PATIENT ON 2 LPM OF OXYGEN VIA NC, NO S/S OF DISTRESS OR SHORTNESS OF BREATH NOTED. IV ACCESS RIGHT AC PATENT AND INTACT, SALINE LOCKED. PATIENT ON TELE MONITORING. MEDICATIONS GIVEN ORDERED. PATIENT NEEDS MET THROUGHOUT SHIFT. SAFETY MEASURES IN PLACE, BED LOCKED IN LOWEST POSITION, CALL LIGHT WITHIN REACH, BED ALARM ON, SIDE RAILS UP X 3. WILL ENDORSE TO DAY SHIFT NURSE FOR CONTINUITY OF CARE
[2020-07-29] MEDS ORDERED: PANTOPRAZOLE 40 MG TABLET.DR PO SCH (07:30)
[2020-07-29] MEDS ORDERED: BLOOD SUGAR DIAGNOSTIC 1 EACH STRIP IN SCH ×2 (07:30)
--- NOTE | 2020-07-29 07:32 | NUR ---
PROGRAM AIDE CLOSING NOTES RECEIVED PATIENT RESTING IN BED. EASY TO AROUSE. A/O X4. PATIENT ON 2 LPM OF OXYGEN VIA NASAL CANNULA - NO SOB NOTED, NO RESPIRATORY DISTRESS NOTED. PATIENT STATES SHE HAS PAIN IN HER LEGS - WILL ADMINISTER PAIN MEDICATION. IV ACCESS TO RIGHT AC #20 - PATENT AND INTACT, SALINE LOCKED. PATIENT ON TELE MONITOR. SAFETY MEASURES IN PLACE. CALL LIGHT WITHIN REACH. WILL CONTINUE TO MONITOR. Addendum: 07/29/20 at 0738 by MARGARET ANDERSON RN OPENING NOTES NOT CLOSING
[2020-07-29] MEDS: hydrALAZINE HCL 50 MG TABLET PO SCH ×2 (08:42→13:00)
[2020-07-29] MEDS ORDERED: ISOSORBIDE DINITRATE (20MG) 20 MG TABLET PO SCH (09:00)
[2020-07-29] MEDS ORDERED: DOCUSATE SODIUM 100 MG CAPSULE PO SCH (09:00)
[2020-07-29] MEDS ORDERED: HYDROCHLOROTHIAZIDE 25 MG TABLET PO SCH (09:00)
[2020-07-29] MEDS ORDERED: VALSARTAN 80 MG TABLET PO SCH (09:00)
[2020-07-29] MEDS ORDERED: ASPIRIN EC 325 MG TABLET.DR PO SCH (09:00)
[2020-07-29] MEDS ORDERED: METOPROLOL TARTRATE 25 MG TABLET PO SCH (09:00)
[2020-07-29] MEDS ORDERED: ASPIRIN EC 81 MG TABLET.DR PO SCH (09:00)
[2020-07-29] MEDS ORDERED: CLONIDINE HCL 0.1 MG TABLET PO PRN (11:30)
[2020-07-29] MEDS ORDERED: ONDANSETRON HCL/PF 4 MG/2 ML VIAL IV PRN (11:30)
--- NOTE | 2020-07-29 12:36 | NUR ---
CHECK TOTALER NOTE @1220 NOTICED PATIENT LEFT SIDE ARM WEAKNESS. PATIENT NOT ABLE TO USE THE ARM AT ALL, DROPS TO GRAVITY AND CANNOT HOLD IT UP. PATIENT HAS LEFT SIDED FACIAL WEAKNESS AND ASYMMETRY WHEN SHE SMILES. RN NORI ABLE TO TRANSLATE FOR ME AND SAYS HER SPEECH IS SLURRED. PATIENT STATED SHE HAD A HEADACHE AND FELT WEAK. PATIENT WAS PUT ON OXYGEN 2L VIA NASAL CANNULA. VITAL SIGNS 114/59 HR 79 O2 98%. PATIENT ABLE TO USE RIGHT SIDE WITH NO PROBLEMS. ABLE TO SWALLOW WITH NO PROBLEMS. CHARGE NURSE AWARE, MD LEBRON AWARE AND SPOKE TO FAMILY. PATIENT SENT FOR STAT CT. NIHSS DONE @ 1000 - PATIENT ABLE TO WALK WITH CANE AND ASSISTANCE. NO LEFT SIDED WEAKNESS. FULL USE OF LEFT HAND ABLE TO QUARANTINE INSPECTOR, STRENGTH WAS NORMAL. NO HEADACHE NOTED.
--- NOTE | 2020-07-29 12:47 | NUR ---
MS RN NOTE PATIENT RETURNED FROM CT SCAN. PENDING RESULTS.
[2020-07-29 13:00] VITALS: BP 114/59
--- NOTE | 2020-07-29 14:30 | NUR ---
MS FLOR FUENTES DISCHARGE NOTE PATIENT'S DAUGHTER WANTED TO LEAVE [place]. SHE STATED SHE WOULD LIKE FOR HER TO BE TREATED AT [facility]. CASE MANAGEMENT WAS WORKING ON A TRANSFER BUT WAS NOT "FAST ENOUGH" FOR THE FAMILY SO DECIDED TO LEAVE [place]. PATIENT STABLE FOR NOW, AWAKE AND ALERT. PATIENT CT NEGATIVE FOR STROKE. PATIENT WAS GIVEN CT RESULTS, X-RAY RESULTS AND LABS. PATIENT WAS GIVEN IMAGING ON CD WELL. HEP LOCK REMOVED, WRISTBAND REMOVED. PATIENT WAS PUT IN WHEELCHAIR AND ACCOMPANIED TO LOBBY WITH 2 FAMILY MEMBERS BY FLOR JULIO AND LOBO MCMAHON. PATIENT LEFT FACILITY @ [id number]
--- NOTE | 2020-07-29 14:39 | NUR ---
INCIDENT REPORT CREATED UNIQUE ID #: [id number]
[2020-07-29] MEDS ORDERED: SIMVASTATIN 40 MG TABLET PO SCH (22:00)
--- NOTE | 2020-07-31 11:30 | NUR ---
SS Consult requested for Stroke on 07/28/2020. SW available until today and pt. was discharged on 07/29.
== END 2020-07-29 14:25 | disposition left against medical advice (07) | DRG 69 ==
LOC: ER 16:58 → TELE 21:35 → MED 07-29 09:54
PROVIDERS: ADMIT Nurse Practitioner Acute Care; ATTEND Internal Medicine
DX: G45.9 Transient cerebral ischemic attack, unspecified (principal); E87.5 Hyperkalemia; E78.5 Hyperlipidemia, unspecified; I16.0 Hypertensive urgency; I25.10 Atherosclerotic heart disease of native coronary artery without angina pectoris; J45.909 Unspecified asthma, uncomplicated; M06.9 Rheumatoid arthritis, unspecified; M19.90 Unspecified osteoarthritis, unspecified site; M54.30 Sciatica, unspecified side; R29.700 NIHSS score 0; R29.810 Facial weakness; Z90.49 Acquired absence of other specified parts of digestive tract; R47.81 Slurred speech; Z82.49 Family history of ischemic heart disease and other diseases of the circulatory system; Z96.653 Presence of artificial knee joint, bilateral; E66.9 Obesity, unspecified; Z68.37 Body mass index [BMI] 37.0-37.9, adult; R07.9 Chest pain, unspecified; R40.2362 Coma scale, best motor response, obeys commands, at arrival to emergency department; R40.2142 Coma scale, eyes open, spontaneous, at arrival to emergency department; R40.2252 Coma scale, best verbal response, oriented, at arrival to emergency department; E11.9 Type 2 diabetes mellitus without complications; Z20.822 Contact with and (suspected) exposure to COVID-19; Z79.84 Long term (current) use of oral hypoglycemic drugs; Z88.0 Allergy status to penicillin
CPT/HCPCS: 36415; 70450-TC; 70496-TC; 70498-TC; 71045-TC; 80048-TC; 80053-TC; 80061-TC; 82728-TC; 82962-TC; 83540-TC; 83735-TC; 83880; 84100-TC; 84439-TC; 84443-TC; 84484-TC; 85025-TC; 85730-TC; 87081-TC; 93307-TC; 93880-TC; 97116-TC; 97530-TC; C9803; G0378; J0360; J1650; J1815; J2060; J2405; J3490; J7050; Q9967

== ENCOUNTER 2023-06-17 19:50 | Inpatient (IN) | payer MEDICARE, OTHER ==
[~2023-06-17] VITALS: Ht 157.5 cm; Wt 99.8 kg
[~2023-06-17 19:50] MED LIST changes: +ATOR40TA PO; -AZIT250T PO; -GABA-532 PO; -HYDR2TAB35 PO; +ICOS1CAP PO; -NAPR-1164 PO; +NEBI5TAB8 PO; +SITA1TAB6 PO; -TRAM50TA2 PO; +VALS1TAB6 PO; -VALS40TA12 PO
[2023-06-17] MEDS ORDERED: ALBUTEROL FS 2.5 MG/3 ML VIAL.NEB ONE (20:19)
[2023-06-17] MEDS ORDERED: IPRATROPIUM NEB FS 0.5 MG/2.5 ML AMPUL.NEB ONE (20:19)
[2023-06-17] MEDS: ALBUTEROL FS 2.5 MG/3 ML VIAL.NEB NEB ONE (20:21)
[2023-06-17] MEDS: IPRATROPIUM NEB FS 0.5 MG/2.5 ML AMPUL.NEB NEB ONE (20:21)
[2023-06-17 20:22] VITALS: O2SAT 96
[2023-06-17] MEDS: predniSONE 20 MG TABLET PO ONE (20:42)
[2023-06-17 20:44] VITALS: O2SAT 98
[2023-06-17 20:46] LABS: BASOPHILS # (AUTO) 0.2 K/uL (0.0-0.2); BASOPHILS % (AUTO) 1.6 % (0.0-2.0); EOSINOPHILS # (AUTO) 0.1 K/uL (0.0-0.7); EOSINOPHILS % (AUTO) 1.1 % (0.0-6.0); HEMATOCRIT 36 % (33-45); HEMOGLOBIN 11.1 g/dL (11.5-14.8); LYMPHOCYTES # (AUTO) 0.6 K/uL (0.8-4.8); LYMPHOCYTES % (AUTO) 5.6 % (20.0-44.0); MEAN CORPUSCULAR HEMOGLOBIN 26 PG (26.0-33.0); MEAN CORPUSCULAR HGB CONC 31 g/dl (31.0-36.0); MEAN CORPUSCULAR VOLUME 82 fL (82-100); MONOCYTES # (AUTO) 0.6 K/uL (0.1-1.30); NEUTROPHILS # (AUTO) 9.6 K/uL (1.8-8.9); NEUTROPHILS % (AUTO) 86.7 % (43.0-81.0); PLATELET COUNT (AUTO) 249 K/uL (150-450); RED BLOOD CELL COUNT(AUTO) 4.35 MIL/uL (4.0-5.2); RED CELL DISTRIBUTION WIDTH 17.3 % (11.5-15.0)
[2023-06-17] MEDS ORDERED: ACETAMINOPHEN 325 MG TABLET ONE (20:58)
[2023-06-17] MEDS: ACETAMINOPHEN 325 MG TABLET PO ONE (21:02)
[2023-06-17 21:09] LABS: CALCIUM, SERUM 8.4 mg/dL (8.5-10.1); CARBON DIOXIDE 24 mmol/L (21-32); CHLORIDE 97 mmol/L (98-107); CREATININE 1.3 mg/dL (0.6-1.3); GLUCOSE 130 mg/dL (74-106); POTASSIUM 3.6 mmol/L (3.5-5.1); SODIUM SERUM 130 mmol/L (136-145); UREA NITROGEN, BLOOD 34 mg/dL (7-18)
[2023-06-17 21:18] LABS: LACTIC ACID 1.4 mmol/L (0.4-2.0)
[2023-06-17] MEDS ORDERED: hydrALAZINE HCL IV 20 MG VIAL IV PRN (21:30)
[2023-06-17] MEDS ORDERED: ONDANSETRON HCL/PF 4 MG/2 ML VIAL IVP PRN (21:30)
[2023-06-17] MEDS ORDERED: MORPHINE SULFATE INJ 2 MG/ML DISP.SYRIN IV PRN (21:30)
[2023-06-17] MEDS ORDERED: DEXTROSE 50%-WATER 50 ML DISP.SYRIN IV PRN (21:30)
[2023-06-17 22:30] VITALS: BP 112/56; TEMP 98.2; O2SAT 93
[2023-06-18] VITALS (13 sets, daily range): BP systolic 109–119; BP diastolic 48–90; TEMP 97.9–101.5; O2SAT 94–99
[2023-06-18] MEDS: IPRATROPIUM/ALBUTEROL INHALER IH SCH
[2023-06-18] MEDS: ATORVASTATIN 40 MG TABLET PO SCH (01:31)
[2023-06-18] MEDS: BLOOD SUGAR DIAGNOSTIC 1 EACH STRIP IN SCH (01:31)
[2023-06-18] MEDS: ALBUTEROL FS 2.5 MG/0.5 ML VIAL.NEB NEB PRN (04:19)
[2023-06-18] MEDS: methylPREDNISolone SOD SUCC 40 MG/ML VIAL IV SCH (07:31)
[2023-06-18] MEDS: ALBUTEROL FS 2.5 MG/0.5 ML VIAL.NEB HHN SCH (08:28)
[2023-06-18] MEDS: IPRATROPIUM NEB FS 0.5 MG/2.5 ML AMPUL.NEB NEB SCH (08:28)
[2023-06-18] MEDS: HYDROCHLOROTHIAZIDE 25 MG TABLET PO SCH (09:00)
[2023-06-18] MEDS ORDERED: CEFTRIAXONE 1 G in IV D5W 50 ML IV SCH (09:00)
[2023-06-18] MEDS: VALSARTAN 80 MG TABLET PO SCH (09:00)
[2023-06-18] MEDS ORDERED: CEFTRIAXONE 2 G in IV D5W 100 ML IV SCH (09:00)
[2023-06-18] MEDS ORDERED: AZITHROMYCIN 500 MG in IV D5W 250 ML IV SCH (09:00)
[2023-06-18] MEDS: CEFTRIAXONE 2 G in IV D5W 100 ML IV SCH (09:24)
[2023-06-18] MEDS: ACETAMINOPHEN 325 MG TABLET PO PRN (09:25)
[2023-06-18] MEDS: PANTOPRAZOLE 40 MG TABLET.DR PO SCH (09:27)
[2023-06-18] MEDS: FUROSEMIDE 20 MG/2 ML VIAL IV SCH (09:43)
[2023-06-18] MEDS: METOPROLOL TARTRATE 25 MG TABLET PO SCH (09:47)
[2023-06-18] MEDS: HEPARIN SODIUM, PORCINE 5000 UNITS/1 ML VIAL SQ SCH (09:49)
[2023-06-18] MEDS: ZITHROMAX 500 MG/250 ML D5W IV SCH (12:08)
[2023-06-18] MEDS ORDERED: ZIOPTAN EACHEYE (12:31)
[2023-06-18] MEDS ORDERED: TAMS-12 PO (12:31)
[2023-06-18] MEDS ORDERED: AMYL1CAP58 PO (12:31)
[2023-06-18] MEDS ORDERED: ATOR20TA PO (12:31)
[2023-06-18] MEDS ORDERED: ACET-637 PO (12:31)
[2023-06-18] MEDS ORDERED: FURO-144 PO (12:31)
[2023-06-18] MEDS ORDERED: GABA-532 PO (12:31)
[2023-06-18] MEDS ORDERED: GEMTESA PO (12:31)
[2023-06-18] MEDS ORDERED: METO-295 PO (12:31)
[2023-06-18] MEDS ORDERED: IPRA4AER INH (12:31)
[2023-06-18] MEDS ORDERED: CARV3.122 PO (12:31)
[2023-06-18] MEDS ORDERED: OMEP40CA21 PO (12:31)
[2023-06-18] MEDS ORDERED: DAPA10TA PO (12:31)
[2023-06-18] MEDS ORDERED: TRAM50TA2 PO (12:31)
[2023-06-18] MEDS ORDERED: SENN-261 PO (12:31)
[2023-06-18] MEDS ORDERED: IPRA3AMP23 NEB (12:31)
[2023-06-18] MEDS ORDERED: ESCI10TA PO (12:31)
[2023-06-18] MEDS ORDERED: CHOL200026 PO (12:31)
[2023-06-18] MEDS ORDERED: DICL100G26 TP (12:31)
[2023-06-18] MEDS ORDERED: METOCLOPRAMIDE HCL 10 MG TABLET PO PRN (14:30)
[2023-06-18] MEDS ORDERED: Medication Not On Formulary EA (Ipratropium/Albuterol Sulfate (Duoneb 2.5-0.5 Mg/3 Ml So NEB PRN (14:30)
[2023-06-18] MEDS ORDERED: ACETAMINOPHEN ES 500 MG TABLET PO PRN (14:30)
[2023-06-18] MEDS ORDERED: Medication Not On Formulary EA (Ipratropium/Albuterol Sulfate (Combivent Respimat 20-100 INH PRN (14:30)
[2023-06-18] MEDS ORDERED: DICLOFENAC TOPICAL 100 GM TUBE TP PRN (16:00)
[2023-06-18 16:15] LABS: ALBUMIN 2.3 g/dL (3.4-5.0); BILIRUBIN,TOTAL 0.5 mg/dL (0.2-1.0); CALCIUM, SERUM 8.6 mg/dL (8.5-10.1); CREATININE 1.2 mg/dL (0.6-1.3); MAGNESIUM 2.3 mg/dL (1.8-2.4); PHOSPHORUS 2.9 mg/dL (2.5-4.9); POTASSIUM 3.4 mmol/L (3.5-5.1); TOTAL PROTEIN, SERUM 6.8 g/dL (6.4-8.2)
[2023-06-18 16:24] LABS: BASOPHILS # (AUTO) 0.1 K/uL (0.0-0.2); BASOPHILS % (AUTO) 0.7 % (0.0-2.0); EOSINOPHILS # (AUTO) 0.1 K/uL (0.0-0.7); HEMATOCRIT 34 % (33-45); HEMOGLOBIN 10.8 g/dL (11.5-14.8); LYMPHOCYTES # (AUTO) 1.2 K/uL (0.8-4.8); LYMPHOCYTES % (AUTO) 8.3 % (20.0-44.0); MEAN CORPUSCULAR HEMOGLOBIN 26 PG (26.0-33.0); MEAN CORPUSCULAR HGB CONC 31 g/dl (31.0-36.0); MEAN CORPUSCULAR VOLUME 84 fL (82-100); MONOCYTES # (AUTO) 1.7 K/uL (0.1-1.30); MONOCYTES % (AUTO) 11.8 % (2.0-12.0); NEUTROPHILS # (AUTO) 11.1 K/uL (1.8-8.9); NEUTROPHILS % (AUTO) 78.2 % (43.0-81.0); PLATELET COUNT (AUTO) 244 K/uL (150-450); RED BLOOD CELL COUNT(AUTO) 4.11 MIL/uL (4.0-5.2); RED CELL DISTRIBUTION WIDTH 18.3 % (11.5-15.0); WHITE BLOOD COUNT (AUTO) 14.2 K/uL (4.3-11.0)
[2023-06-18] MEDS ORDERED: IPRATROPIUM NEB FS 0.5 MG/2.5 ML AMPUL.NEB NEB PRN (17:00)
[2023-06-18] MEDS: TRAMADOL HCL 50 MG TABLET PO SCH (17:40)
[2023-06-18] MEDS: CARVEDILOL 3.125 MG TABLET PO SCH (17:40)
[2023-06-18] MEDS: GABAPENTIN 100 MG CAPSULE PO SCH (17:40)
[2023-06-18] MEDS: LIPASE/PROTEASE/AMYLASE 1 EACH CAPSULE.DR PO SCH (18:35)
[2023-06-18 19:12] LABS: LYMPHOCYTES % (MANUAL) 14 % (16-48); MONOCYTES % (MANUAL) 8 % (0-11.0); NEUTROPHILS % (MANUAL) 78 (42-76)
[2023-06-18 19:13] LABS: ANISOCYTOSIS 1+; OVALOCYTES 1+; PLATELET ESTIMATE ADEQU
[2023-06-18] MEDS: INSULIN REGULAR, HUMAN 100 UNIT/ML 3 ML VIAL SQ PRN (22:14)
[2023-06-18] MEDS: ATORVASTATIN 10 MG TABLET PO SCH (22:22)
[2023-06-19] VITALS (15 sets, daily range): BP systolic 110–132; BP diastolic 51–96; TEMP 97.5–98.8; O2SAT 94–99
[2023-06-19 07:06] LABS: BASOPHILS % (AUTO) 0.1 % (0.0-2.0); HEMATOCRIT 35 % (33-45); HEMOGLOBIN 11.3 g/dL (11.5-14.8); LYMPHOCYTES # (AUTO) 0.9 K/uL (0.8-4.8); LYMPHOCYTES % (AUTO) 8.2 % (20.0-44.0); MEAN CORPUSCULAR HEMOGLOBIN 26 PG (26.0-33.0); MEAN CORPUSCULAR HGB CONC 32 g/dl (31.0-36.0); MEAN CORPUSCULAR VOLUME 81 fL (82-100); MONOCYTES # (AUTO) 0.3 K/uL (0.1-1.30); NEUTROPHILS # (AUTO) 9.6 K/uL (1.8-8.9); NEUTROPHILS % (AUTO) 88.7 % (43.0-81.0); PLATELET COUNT (AUTO) 287 K/uL (150-450); RED BLOOD CELL COUNT(AUTO) 4.29 MIL/uL (4.0-5.2); RED CELL DISTRIBUTION WIDTH 17.6 % (11.5-15.0); WHITE BLOOD COUNT (AUTO) 10.8 K/uL (4.3-11.0)
[2023-06-19 07:31] LABS: CREATINE KINASE, TOTAL 19 U/L (26-192)
[2023-06-19] MEDS ORDERED: Z GUARD REMEDY 4 OZ OINT TP PRN (08:00)
[2023-06-19 08:51] LABS: ALANINE AMINOTRANSFERASE 31 U/L (12-78); ALBUMIN 2.5 g/dL (3.4-5.0); ALKALINE PHOSPHATASE 120 U/L (46-116); ASPARTATE AMINOTRANSFERASE 18 U/L (15-37); BILIRUBIN,TOTAL 0.3 mg/dL (0.2-1.0); CALCIUM, SERUM 9.2 mg/dL (8.5-10.1); CARBON DIOXIDE 26 mmol/L (21-32); CHLORIDE 102 mmol/L (98-107); CREATININE 1.4 mg/dL (0.6-1.3); GLUCOSE 183 mg/dL (74-106); MAGNESIUM 2.7 mg/dL (1.8-2.4); POTASSIUM 3.2 mmol/L (3.5-5.1); SODIUM SERUM 139 mmol/L (136-145); TOTAL PROTEIN, SERUM 7.5 g/dL (6.4-8.2); UREA NITROGEN, BLOOD 33 mg/dL (7-18)
[2023-06-19] MEDS ORDERED: ZIOPTAN EACHEYE SCH (09:00)
[2023-06-19] MEDS ORDERED: Medication Not On Formulary EA ([Gemtesa] 75 MG) PO SCH (09:00)
[2023-06-19] MEDS: DAPAGLIFLOZIN PROPANEDIOL 5 MG TABLET PO SCH (10:11)
[2023-06-19] MEDS: POTASSIUM CHLORIDE 20 MEQ POWDER PACKET PO ONE (10:11)
[2023-06-19] MEDS: SENNOSIDES 8.6 MG TABLET PO SCH (10:14)
[2023-06-19] MEDS: CHOLECALCIFEROL 1,000 UNIT TABLET (VIT D3) PO SCH (10:14)
[2023-06-19] MEDS: ESCITALOPRAM OXALATE (10 MG) 10 MG TABLET PO SCH (10:15)
[2023-06-19] MEDS: TAMSULOSIN 0.4 MG CAP.SR.24H PO SCH (10:16)
[2023-06-19] MEDS: CLOTRIMAZOLE 1% 15 GM TUBE TP SCH (11:51)
[2023-06-19] MEDS: Z GUARD REMEDY 4 OZ OINT TP SCH (11:52)
[2023-06-19] MEDS: predniSONE 20 MG TABLET PO SCH (14:19)
[2023-06-20] VITALS (11 sets, daily range): BP systolic 111–151; BP diastolic 69–85; TEMP 97.3–97.8; O2SAT 96–100
[2023-06-20 06:09] LABS: PTH, INTACT 52 pg/mL (15-65)
[2023-06-20 07:30] LABS: EOSINOPHILS % (AUTO) 0.1 % (0.0-6.0); HEMATOCRIT 33 % (33-45); HEMOGLOBIN 10.7 g/dL (11.5-14.8); LYMPHOCYTES # (AUTO) 1.2 K/uL (0.8-4.8); LYMPHOCYTES % (AUTO) 10.9 % (20.0-44.0); MEAN CORPUSCULAR HEMOGLOBIN 26 PG (26.0-33.0); MEAN CORPUSCULAR HGB CONC 32 g/dl (31.0-36.0); MEAN CORPUSCULAR VOLUME 81 fL (82-100); MONOCYTES # (AUTO) 0.7 K/uL (0.1-1.30); NEUTROPHILS # (AUTO) 9.4 K/uL (1.8-8.9); PLATELET COUNT (AUTO) 318 K/uL (150-450); RED BLOOD CELL COUNT(AUTO) 4.11 MIL/uL (4.0-5.2); RED CELL DISTRIBUTION WIDTH 17.3 % (11.5-15.0); WHITE BLOOD COUNT (AUTO) 11.4 K/uL (4.3-11.0)
[2023-06-20 07:47] LABS: CALCIUM, SERUM 8.9 mg/dL (8.5-10.1); CARBON DIOXIDE 25 mmol/L (21-32); CHLORIDE 99 mmol/L (98-107); CREATININE 1.3 mg/dL (0.6-1.3); GLUCOSE 150 mg/dL (74-106); MAGNESIUM 2.6 mg/dL (1.8-2.4); PHOSPHORUS 4.8 mg/dL (2.5-4.9); POTASSIUM 3.7 mmol/L (3.5-5.1); SODIUM SERUM 134 mmol/L (136-145); UREA NITROGEN, BLOOD 43 mg/dL (7-18)
[2023-06-20] MEDS: methylPREDNISolone SOD SUCC 40 MG/ML VIAL IV SCH (08:32)
[2023-06-20] MEDS: AZITHROMYCIN 250 MG TABLET PO SCH (12:21)
[2023-06-20] MEDS ORDERED: AZIT250T PO (12:30)
[2023-06-20] MEDS ORDERED: METH4TAB3 PO (12:30)
[2023-06-20] MEDS ORDERED: FLUT1BLS14 INH (12:41)
[2023-06-20] MEDS ORDERED: AZIT250T13 PO (18:32)
[2023-06-20] MEDS ORDERED: FLUT1DIS INH (18:32)
[2023-06-22 10:08] LABS: *SPE A/G RATIO 0.6 (0.7-1.7); *SPE ALBUMIN 2.3 g/dL (2.9-4.4); *SPE ALPHA-1-GLOBULIN 0.6 g/dL (0.0-0.4); *SPE ALPHA-2-GLOBULIN 1.3 g/dL (0.4-1.0); *SPE BETA GLOBULIN 1.2 g/dL (0.7-1.3); *SPE M-SPIKE Not Observed g/dL (Not Observed); *SPE PROTEIN TOTAL 6.3 g/dL (6.0-8.5); *SPEGAMMA GLOBULIN 0.9 g/dL (0.4-1.8)
== END 2023-06-20 17:23 | disposition home health service (06) | DRG 291 ==
LOC: ER 20:05 → TELE 22:45 → MED 06-20 10:10
PROVIDERS: ADMIT Internal Medicine; ATTEND Student in an Organized Health Care Education/Training Program
DX: I11.0 Hypertensive heart disease with heart failure (principal); I50.33 Acute on chronic diastolic (congestive) heart failure; J96.21 Acute and chronic respiratory failure with hypoxia; J44.0 Chronic obstructive pulmonary disease with (acute) lower respiratory infection; J44.1 Chronic obstructive pulmonary disease with (acute) exacerbation; E87.1 Hypo-osmolality and hyponatremia; I69.354 Hemiplegia and hemiparesis following cerebral infarction affecting left non-dominant side; Z68.41 Body mass index [BMI] 40.0-44.9, adult; N17.9 Acute kidney failure, unspecified; J20.9 Acute bronchitis, unspecified; E11.9 Type 2 diabetes mellitus without complications; D64.9 Anemia, unspecified; E66.01 Morbid (severe) obesity due to excess calories; E78.5 Hyperlipidemia, unspecified; G47.33 Obstructive sleep apnea (adult) (pediatric); Z90.49 Acquired absence of other specified parts of digestive tract; Z88.0 Allergy status to penicillin; Z95.0 Presence of cardiac pacemaker; Z79.84 Long term (current) use of oral hypoglycemic drugs; M89.8X9 Other specified disorders of bone, unspecified site; M06.9 Rheumatoid arthritis, unspecified; I08.1 Rheumatic disorders of both mitral and tricuspid valves; E87.6 Hypokalemia; I49.9 Cardiac arrhythmia, unspecified; T50.2X5A Adverse effect of carbonic-anhydrase inhibitors, benzothiadiazides and other diuretics, initial encounter; Y92.009 Unspecified place in unspecified non-institutional (private) residence as the place of occurrence of the external cause
CPT/HCPCS: 36415; 71045-TC; 71250-TC; 80048-TC; 80053-TC; 82550-TC; 82962-TC; 83605-TC; 83735-TC; 83880; 83970; 84100-TC; 84155; 84165; 84484-TC; 85025-TC; 93970-TC; 94760-TC; 94799-TC; A4223; G0378; J0456; J0696; J1644; J1815; J1940; J2920; J7050; J7060